=== PATIENT | male | born 1990 | race Caucasian/White ===

== ENCOUNTER 2018-07-21 23:42 | Emergency (ER) | payer BC ==
[~2018-07-21] VITALS: Ht 190.5 cm; Wt 95.3 kg
--- NOTE | 2018-07-22 00:08 | PHYS DOC ---
Adult General Chief Complaint Chief Complaint: GROIN PAIN HPI HPI 28-year-old male presents with right testicle pain. 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 He had a second twinge about an hour later. The frequency of these sudden, short, sharp pains has increased and is now about every 5 minutes. At first it appeared to be associated when he was lifting heavier items but now she is happening all the time. The pain now seems to radiate up to his waist line on the right side. He has not noticed any scrotal swelling. He has not had any unusual discharge or sores. He is not concerned for STD. Patient denies any direct trauma. He's had no previous testicular complications or infections. He denies fever or chills. Review of Systems Review of Systems Constitutional: Denies fever or chills [] Eyes: Denies change in visual acuity, redness, or eye pain [] HENT: Denies nasal congestion or sore throat [] Respiratory: Denies cough or shortness of breath [] Cardiovascular: No additional information not addressed in HPI [] GI: Denies abdominal pain, nausea, vomiting, bloody stools or diarrhea [] : Denies dysuria or hematuria [] Musculoskeletal: Denies back pain or joint pain [] Integument: Denies rash or skin lesions [] Neurologic: Denies headache, focal weakness or sensory changes [] Endocrine: Denies polyuria or polydipsia [] All other systems were reviewed and found to be within normal limits, except as documented in this note. Physical Exam Physical Exam Constitutional: Well developed, well nourished, no acute distress, non-toxic appearance. [] HENT: Normocephalic, atraumatic, bilateral external ears normal, oropharynx moist, no oral exudates, nose normal. [] Eyes: PERRLA, EOMI, conjunctiva normal, no discharge. [] Neck: Normal range of motion, no tenderness, supple, no stridor. [] Cardiovascular:Heart rate regular rhythm, no murmur [] Lungs & Thorax: Bilateral breath sounds clear to auscultation [] Abdomen: Bowel sounds normal, soft, no tenderness, no masses, no pulsatile masses. [] Skin: Warm, dry, no erythema, no rash. [] Back: No tenderness, no CVA tenderness. [] Extremities: No tenderness, no cyanosis, no clubbing, ROM intact, no edema. [] Neurologic: Alert and oriented X 3, normal motor function, normal sensory function, no focal deficits noted. [] Psychologic: Affect normal, judgement normal, mood normal. : Circumcised, normal exterior exam. No obvious testicular swelling. No tenderness of the posterior of the testicle. Tenderness at the inferior opening to the inguinal canal on the right.[] EKG EKG [] Radiology/Procedures Radiology/Procedures [] Impressions: CT abdomen and pelvis with contrast. HISTORY: Right testicular pain CT scan of the abdomen and pelvis was done using Omnipaque 300 contrast. The lung bases are clear. There is no effusion. A liver lesion is not identified. There is contraction of the gallbladder without a calcified gallstone. Spleen and adrenal glands are normal. Pancreas is normal. There is no mass or hydronephrosis in the kidneys. A ureteral calculus is not identified. Appendix is normal. There is no bowel obstruction. There is no adenopathy. A hernia is not identified. Lumbar spine is in normal alignment. IMPRESSION: 1. No renal or ureteral calculus noted. 2. Normal appendix. 3. No abdominal or pelvic mass or acute finding in the abdomen. 4. A hernia is not identified. Electronically signed by: Castro Gong MD (07/22/2018 1:32 AM) [facility] DICTATED AND SIGNED BY: CASTRO GONG MD DATE: 07/22/18 0128 CC: ALMA MOTT DO; PCP,NO Scrotal ultrasound. HISTORY: Right testicular pain radiates to right groin Ultrasound was used to evaluate the testicles and scrotum. Right testicle has a normal appearance measuring 4.7 x 2.4 x 3 cm. Right epididymis was normal in appearance. There is flow in the right ovary with color imaging and Doppler. There is no significant hydrocele. There are a few vessels near the epididymis suggesting a small right varicocele. Lymph nodes at the right groin are generous in size but have a normal fatty hilum. A hernia was not identified. Left testicle was normal measuring 4.8 x 2.2 x 3.2 cm. There is flow in the left testicle with color imaging and Doppler. There is a tiny epididymal cysts measuring 2 mm on the left. There are a few vessels lateral to the epididymis on the left suggesting a small varicocele. IMPRESSION: 1. No evidence of testicular torsion. 2. A right hernia is not identified. 3. Generous lymph node in the right groin. 4. Small varicoceles. Electronically signed by: Castro Gong MD (07/22/2018 2:37 AM) [facility] DICTATED AND SIGNED BY: CASTRO GONG MD DATE: 07/22/18231 CC: ALMA MOTT DO; PCP,NO Course & Med Decision Making Course & Med Decision Making Pertinent Labs and Imaging studies reviewed. (See chart for details) The patient's labs are unremarkable. His urinalysis is negative for infection. His CT scan is unremarkable. I will treat the patient was ciprofloxacin for 10 days. We will do this first dose in the ED. He is stable for discharge at this time. He will follow-up with his PCP as needed. [] Dragon Disclaimer Dragon Disclaimer This electronic medical record was generated, in whole or in part, using a voice recognition dictation system. Departure Departure: Impression: Primary Impression: Right testicular pain Disposition: HOME, SELF-CARE Condition: STABLE Referrals: PCP,MARK (PCP) Patient Instructions: Epididymitis Scripts Ciprofloxacin Hcl (CIPROFLOXACIN HCL) 500 Mg Tablet 1 TAB PO BID for infection, #20 TAB Prov: ALMA MOTT DO 07/22/18 ALMA MOTT DO Jul 22, 2018 00:08
[2018-07-22 00:36] LABS: BASO % 1 % (0-3); EOS # 0.3 x10^3/uL (0.0-0.7); EOS % 4 % (0-3); HEMATOCRIT 43.8 % (39.0-53.0); HEMOGLOBIN 14.8 g/dL (13.0-17.5); LYMPH % 40 % (24-48); MEAN CORPUSCULAR HEMOGLOBIN 29 pg (25-35); MEAN CORPUSCULAR HGB CONC 34 g/dL (31-37); MEAN CORPUSCULAR VOLUME 86 fL (79-100); MONO # 0.7 x10^3/uL (0.0-1.1); MONO % 9 % (0-9); NEUT # 3.4 x10^3uL (1.8-7.7); NEUT % 45 % (31-73); PLATELET COUNT 287 x10^3/uL (140-400); RED BLOOD COUNT 5.08 x10^6/uL (4.30-5.70); RED CELL DISTRIBUTION WIDTH 13.3 % (11.5-14.5); WHITE BLOOD COUNT 7.4 x10^3/uL (4.0-11.0)
[2018-07-22 00:44] LABS: BACTERIA,URINE 0 /HPF (0-FEW); BILIRUBIN,URINE NEG (NEG); CLARITY,URINE CLEAR; COLOR,URINE YELLOW; GLUCOSE,URINE NEG (NEG); NITRITE,URINE NEG (NEG); RBC,URINE OCC /HPF (0-2); SQUAMOUS EPITHELIAL CELL,UR FEW /LPF; UROBILINOGEN,URINE 0.2 mg/dL (0.2 mg/dL)
[2018-07-22 00:47] LABS: ALBUMIN 4.1 g/dL (3.4-5.0); ALBUMIN/GLOBULIN RATIO 1.1 (1.0-1.7); CALCIUM 9.3 mg/dL (8.5-10.1); GFR 88.3; POTASSIUM 3.4 mmol/L (3.5-5.1); TOTAL BILIRUBIN 0.9 mg/dL (0.2-1.0); TOTAL PROTEIN 7.7 g/dL (6.4-8.2)
[2018-07-22] MEDS ORDERED: IOHEXOL 300 MG/ML 75 ML VIAL. IV ONE (01:00)
[2018-07-22] MEDS ORDERED: CONTRAST GIVEN MC PRN (01:00)
--- NOTE | 2018-07-22 01:36 | RAD ---
CT abdomen and pelvis with contrast. HISTORY: Right testicular pain CT scan of the abdomen and pelvis was done using Omnipaque 300 contrast. The lung bases are clear. There is no effusion. A liver lesion is not identified. There is contraction of the gallbladder without a calcified gallstone. Spleen and adrenal glands are normal. Pancreas is normal. There is no mass or hydronephrosis in the kidneys. A ureteral calculus is not identified. Appendix is normal. There is no bowel obstruction. There is no adenopathy. A hernia is not identified. Lumbar spine is in normal alignment. IMPRESSION: 1. No renal or ureteral calculus noted. 2. Normal appendix. 3. No abdominal or pelvic mass or acute finding in the abdomen. 4. A hernia is not identified. Electronically signed by: Ravin Ortiz MD (07/22/2018 1:32 AM) [facility]
[2018-07-22] MEDS ORDERED: CIPR500T PO (02:11)
[2018-07-22] MEDS ORDERED: CIPROFLOXACIN HCL 500 MG TABLET PO ONE (02:15)
[2018-07-22] MEDS ORDERED: CIPROFLOXACIN HCL 500 MG TABLET ONE (02:18)
[2018-07-22 02:30] VITALS: BP 131/80
--- NOTE | 2018-07-22 02:41 | RAD ---
Scrotal ultrasound. HISTORY: Right testicular pain radiates to right groin Ultrasound was used to evaluate the testicles and scrotum. Right testicle has a normal appearance measuring 4.7 x 2.4 x 3 cm. Right epididymis was normal in appearance. There is flow in the right ovary with color imaging and Doppler. There is no significant hydrocele. There are a few vessels near the epididymis suggesting a small right varicocele. Lymph nodes at the right groin are generous in size but have a normal fatty hilum. A hernia was not identified. Left testicle was normal measuring 4.8 x 2.2 x 3.2 cm. There is flow in the left testicle with color imaging and Doppler. There is a tiny epididymal cysts measuring 2 mm on the left. There are a few vessels lateral to the epididymis on the left suggesting a small varicocele. IMPRESSION: 1. No evidence of testicular torsion. 2. A right hernia is not identified. 3. Generous lymph node in the right groin. 4. Small varicoceles. Electronically signed by: Ravin Ortiz MD (07/22/2018 2:37 AM) [facility]
== END 2018-07-22 02:28 | disposition home or self-care (01) ==
LOC: ER 23:42
DX: N50.811 Right testicular pain (principal); I86.1 Scrotal varices
CPT/HCPCS: 36415; 74177; 76870; 80053; 81001; 85025; 99284; Q9967

== ENCOUNTER 2018-09-11 14:54 | Emergency (ER) | payer BC ==
[~2018-09-11] VITALS: Ht 160 cm; Wt 95.3 kg
[2018-09-11 14:54] VITALS: BP 139/74
[~2018-09-11 14:54] MED LIST: CIPR500T PO
--- NOTE | 2018-09-11 15:37 | PHYS DOC ---
Past History Past Medical History: No Pertinent History (ALMA MOTT DO) Past Surgical History: No Surgical History (ALMA MOTT DO) Alcohol Use: Occasionally Drug Use: Marijuana (ALMA MOTT DO) Adult General Chief Complaint Chief Complaint: BACK PAIN OR INJURY HPI HPI Review 8-year-old male presents with low back pain. Patient started to have low back pain around noon yesterday while sitting on the couch. The pain got worse throughout the evening and has continued today. The only thing he can think of that might have hurt it as he was having sexual intercourse in a strange angle prior to the pain starting. It hurts the most when he stands up. It is relieved with lying down flat. There is some radiation down the left buttocks and posterior thigh but stops before the knee. He denies dysuria or urinary frequency. He has had kidney stones in the past and states that this pain does not feel the same. The patient has no history of back problems. No history of back surgery. (ALMA MOTT DO) Review of Systems Review of Systems Constitutional: Denies fever or chills [] Eyes: Denies change in visual acuity, redness, or eye pain [] HENT: Denies nasal congestion or sore throat [] Respiratory: Denies cough or shortness of breath [] Cardiovascular: No additional information not addressed in HPI [] GI: Denies abdominal pain, nausea, vomiting, bloody stools or diarrhea [] : Denies dysuria or hematuria [] Musculoskeletal: Tenderness over the lumbar spine and paraspinal muscles. Left sacroiliac joint tenderness[] Integument: Denies rash or skin lesions [] Neurologic: Denies headache, focal weakness or sensory changes [] Endocrine: Denies polyuria or polydipsia [] All other systems were reviewed and found to be within normal limits, except as documented in this note. (ALMA MOTT DO) Allergies Allergies Allergies Coded Allergies Type Severity Reaction Last Updated Verified ketorolac Allergy Intermediate 07/22/18 Yes (ALMA MOTT DO) Physical Exam Physical Exam Constitutional: Well developed, well nourished, no acute distress, non-toxic appearance. [] HENT: Normocephalic, atraumatic, bilateral external ears normal, oropharynx moist, no oral exudates, nose normal. [] Eyes: PERRLA, EOMI, conjunctiva normal, no discharge. [] Neck: Normal range of motion, no tenderness, supple, no stridor. [] Cardiovascular:Heart rate regular rhythm, no murmur [] Lungs & Thorax: Bilateral breath sounds clear to auscultation [] Abdomen: Bowel sounds normal, soft, no tenderness, no masses, no pulsatile masses. [] Skin: Warm, dry, no erythema, no rash. [] Back: No tenderness, no CVA tenderness. [] Extremities: No tenderness, no cyanosis, no clubbing, ROM intact, no edema. [] Neurologic: Alert and oriented X 3, normal motor function, normal sensory function, no focal deficits noted. [] Psychologic: Affect normal, judgement normal, mood normal. [] (ALMA MOTT DO) Current Patient Data Vital Signs Vital Signs Date Time Temp Pulse Resp B/P (MAP) Pulse Ox O2 Delivery O2 Flow Rate FiO2 09/11/18 14:54 97.8 85 20 99 Room Air (ALMA MOTT DO) EKG EKG [] (ALMA MOTT DO) Radiology/Procedures Radiology/Procedures [] (ALMA MOTT DO) Course & Med Decision Making Course & Med Decision Making Pertinent Labs and Imaging studies reviewed. (See chart for details) []The patient's labs are unremarkable. The patient was unable to urinate for us despite having 600 mL by bladder scan. We placed a Reeves catheter. I change the patient's lumbar x-rays to CT. This is pending at this time. I'm signing out the patient to Dr. Pantoja at 1800. (ALMA MOTT DO) Course & Med Decision Making CT showed herniated desk upon my examination he had numbness in his both toes, weakness= 2/ 5 left leg, 3 out of 5 on the right leg . Patient's and able to ambulate, I discussed the case with Dr. Jain and Dr. Fajardo nurse practitioner whom discussed the case with the attending surgeon advised to admit him to [facility] and obtain an MRI tonight of the lumbar spine Diagnoses herniated disc (MARINO HENDERSON MD) Dragon Disclaimer Dragon Disclaimer This electronic medical record was generated, in whole or in part, using a voice recognition dictation system. (ALMA MOTT DO) Departure Departure: Disposition: 01 HOME, SELF-CARE Condition: STABLE Referrals: PCP,NO (PCP) Scripts Cyclobenzaprine Hcl (CYCLOBENZAPRINE HCL) 10 Mg Tablet 1 TAB PO TID for ., #30 TAB Prov: MARINO HENDERSON MD 09/11/18 Hydrocodone Bit/Acetaminophen (NORCO 5-325 TABLET) 1 Each Tablet 1-2 TAB PO Q4-6HRS for ., #20 TAB Prov: MARINO HENDERSON MD 09/11/18 Meloxicam (MOBIC) 7.5 Mg Tablet 1 TAB PO DAILY for ., #30 TAB 3 Refills Prov: MARINO HENDERSON MD 09/11/18 ALMA MOTT DO Sep 11, 2018 15:37 MARINO HENDERSON MD Sep 11, 2018 21:03
[2018-09-11] MEDS ORDERED: HYDROcodone/APAP 5/325MG 1 TAB TABLET PO ONE (17:00)
[2018-09-11 17:47] LABS: BARBITURATES NEG (NEG); BENZODIAZEPINES NEG (NEG); CANNABINOIDS POS (NEG); COCAINE NEG (NEG); METHADONE NEG (NEG); OPIATES NEG (NEG); PHENCYCLIDINE NEG (NEG)
[2018-09-11 17:49] LABS: BACTERIA,URINE 0 /HPF (0-FEW); BILIRUBIN,URINE NEG (NEG); CLARITY,URINE CLEAR; COLOR,URINE STRAW; GLUCOSE,URINE NEG (NEG); NITRITE,URINE NEG (NEG); RBC,URINE 0 /HPF (0-2); UROBILINOGEN,URINE 0.2 mg/dL (0.2 mg/dL); WBC,URINE OCC /HPF (0-4)
[2018-09-11 17:53] LABS: AMPHETAMINE/METHAMPHETAMINE NEG (NEG)
--- NOTE | 2018-09-11 20:29 | RAD ---
CT LUMBAR SPINE WO CONTRAST dated 09/11/2018 5:31 PM Indication:lower back pain, twisted back Comparison: No comparison is available. Technique: Helical noncontrast images were performed. Sagittal and coronal reconstructions were obtained. One or more of the following individualized dose reduction techniques were utilized for this examination: 1. Automated exposure control 2. Adjustment of the mA and/or kV according to patient size 3. Use of iterative reconstruction technique Findings: Alignment is normal. There is no evidence of fracture or destructive process. Evaluation of the soft tissue components of the canal is limited without intrathecal contrast. There is some disc narrowing at L4-5 with adjacent endplate sclerosis and irregularity. Soft tissue windows suggest there is probably a component of disc protrusion at this level, lateralized to the left and indenting the thecal sac. There is no obvious large disc protrusion at the other levels. There is no evidence of high-grade bony stenosis at any level. IMPRESSION: Suspected disc protrusion at L4-5 lateralized to the left, although evaluation of the soft tissue components of the canal is limited without the presence of intrathecal contrast. There is no evidence of a fracture or other acute bony abnormality. Electronically signed by: Enrico Reno Jr., MD (09/11/2018 8:25 PM) [facility]
[2018-09-11] MEDS ORDERED: MELO7.5T5 PO (21:00)
[2018-09-11] MEDS ORDERED: CYCL-331 PO (21:00)
[2018-09-11] MEDS ORDERED: HYDR-3165 PO (21:00)
[2018-09-11] MEDS ORDERED: KETOROLAC 30 MG/ML VIAL. IV ONE (22:45)
[2018-09-11 22:48] LABS: BASO % 0 % (0-3); EOS # 0.1 x10^3/uL (0.0-0.7); EOS % 2 % (0-3); HEMATOCRIT 44.4 % (39.0-53.0); HEMOGLOBIN 15.3 g/dL (13.0-17.5); LYMPH # 1.8 x10^3/uL (1.0-4.8); LYMPH % 25 % (24-48); MEAN CORPUSCULAR HEMOGLOBIN 30 pg (25-35); MEAN CORPUSCULAR HGB CONC 35 g/dL (31-37); MEAN CORPUSCULAR VOLUME 86 fL (79-100); MONO # 0.6 x10^3/uL (0.0-1.1); MONO % 8 % (0-9); NEUT # 4.8 x10^3uL (1.8-7.7); NEUT % 65 % (31-73); PLATELET COUNT 236 x10^3/uL (140-400); RED BLOOD COUNT 5.18 x10^6/uL (4.30-5.70); RED CELL DISTRIBUTION WIDTH 13.2 % (11.5-14.5); WHITE BLOOD COUNT 7.3 x10^3/uL (4.0-11.0)
[2018-09-11] MEDS ORDERED: CYCLOBENZAPRINE 10 MG TABLET. PO ONE (23:00)
[2018-09-11] MEDS ORDERED: MORPHINE SULFATE 4 MG/ML DISP.SYRIN. IV ONE (23:00)
[2018-09-11 23:01] LABS: ALBUMIN 3.8 g/dL (3.4-5.0); ALBUMIN/GLOBULIN RATIO 1.1 (1.0-1.7); CALCIUM 8.8 mg/dL (8.5-10.1); GFR 88.3; POTASSIUM 3.4 mmol/L (3.5-5.1); TOTAL BILIRUBIN 1.1 mg/dL (0.2-1.0); TOTAL PROTEIN 7.3 g/dL (6.4-8.2)
== END 2018-09-11 23:15 | disposition short-term general hospital (02) ==
LOC: ER 14:54
DX: M51.27 Other intervertebral disc displacement, lumbosacral region (principal); Z88.8 Allergy status to other drugs, medicaments and biological substances
CPT/HCPCS: 36415; 51701; 72131; 80053; 80307; 81001; 85025; 85610; 96374; 99285; J2270